=== PATIENT | female | born 1965 ===

== ENCOUNTER 2019-09-19 10:34 | Emergency (ER) | payer OTHER ==
[~2019-09-19] VITALS: Ht 160 cm; Wt 0.5 kg
[2019-09-19] MEDS ORDERED: VASOTEC2.5 MG (10:49)
[2019-09-19] MEDS ORDERED: ACETAMINOPHEN500 M1 PO (16:41)
== END 2019-09-19 17:00 | disposition home or self-care (01) ==
LOC: ER 10:34
DX: B34.8 Other viral infections of unspecified site (principal); R50.9 Fever, unspecified; Z03.818 Encounter for observation for suspected exposure to other biological agents ruled out